=== PATIENT | female | born 1985 | race Caucasian/White ===

== ENCOUNTER 2018-08-04 18:06 | Emergency (ER) | payer BC ==
[~2018-08-04] VITALS: Ht 157.5 cm; Wt 72.6 kg
[2018-08-04] MEDS ORDERED: VITAMIN D1000 UNI1 PO (18:13)
[2018-08-04] MEDS ORDERED: GLATIRAMER40 MG/1 ML SUBQ (18:14)
[2018-08-04] MEDS ORDERED: TRAMADOL 50 MG50 MG PO (20:09)
[2018-08-04 20:33] VITALS: BP 138/81
== END 2018-08-04 20:37 | disposition home or self-care (01) ==
LOC: ER 18:06
DX: S02.5XXA Fracture of tooth (traumatic), initial encounter for closed fracture (principal); S80.02XA Contusion of left knee, initial encounter; S60.222A Contusion of left hand, initial encounter; M25.462 Effusion, left knee; W18.39XA Other fall on same level, initial encounter; Y92.89 Other specified places as the place of occurrence of the external cause; Y93.01 Activity, walking, marching and hiking; Y99.8 Other external cause status